=== PATIENT | female | born 1965 | race African-American/Black ===

== ENCOUNTER 2017-06-08 13:36 | Emergency (ER) | payer OTHER ==
[~2017-06-08] VITALS: Ht 142.2 cm; Wt 74.8 kg
[2017-06-08 13:40] VITALS: TEMP 98.1
[2017-06-08] MEDS ORDERED: LISI20TA11 PO (14:03)
[2017-06-08] MEDS ORDERED: AMLODIPINE BESYLATE PO (14:04)
[2017-06-08 14:26] LABS: PLATELET COUNT 320 K/uL (152-353)
[2017-06-08 14:29] LABS: POTASSIUM 3.1 mmol/L (3.6-5.2); SODIUM 133 mmol/L (136-145)
[2017-06-08 16:55] VITALS: BP 168/84
== END 2017-06-08 16:56 | disposition home or self-care (01) ==
LOC: ED 13:36
PROVIDERS: Family Medicine
DX: I16.0 Hypertensive urgency (principal); R07.89 Other chest pain
CPT/HCPCS: 36415; 80048; 84484; 85027; 93005; 96374; 96375; 99284; J1170; J2405; J3490; Q9963